=== PATIENT | male | born 1955 | race African-American/Black ===

== ENCOUNTER 2017-11-23 21:16 | Emergency (ER) | payer MEDICAID ==
[~2017-11-23] VITALS: Ht 175.3 cm; Wt 85.0 kg
[~2017-11-23 21:16] MED LIST: ASA; HCTZ; NORVASC
[2017-11-24 03:00] LABS: HEMATOCRIT 41.1 % (42.0-52.0); HEMOGLOBIN 13.7 g/dL (14.0-18.0); MEAN CORPUSCULAR VOLUME 77.9 fL (80.0-94.0); PLATELET 162 x1000/uL (130-400); RED BLOOD CELL COUNT 5.28 mill/uL (4.7-6.1); RED CELL DISTRIBUTION WIDTH 15.7 % (11.6-14.6)
[2017-11-24 03:04] LABS: CHLORIDE 102 mEq/L (98-107)
[2017-11-24 03:07] LABS: INR 1.1; PARTIAL THROMBOPLASTIN TIME 28.9 sec (23.4-31.0)
[2017-11-24] MEDS ORDERED: KETOROLAC 60MG/2ML VIAL IM ONE (04:15)
[2017-11-24 04:45] VITALS: BP 129/61
== END 2017-11-24 05:15 | disposition home or self-care (01) ==
LOC: ER 21:16
DX: R60.0 Localized edema (principal); M79.605 Pain in left leg; I10 Essential (primary) hypertension
CPT/HCPCS: 36415; 80048; 85027; 85610; 85730; 86850; 86900; 86901; 93970; 96372; 99285; J1885; Z7610